=== PATIENT | female | born 1970 | race African-American/Black ===

== ENCOUNTER 2023-07-06 13:50 | Emergency (ER) | payer MEDICARE, MEDICAID ==
[~2023-07-06] VITALS: Ht 172.7 cm; Wt 86.5 kg
[2023-07-06 13:58] VITALS: BP 139/98; PULSE 96; RESP 16; TEMP 98.1; O2SAT 98
[2023-07-06] MEDS ORDERED: MECLIZINE 25MG TABLET PO ONE (14:00)
[2023-07-06 14:53] LABS: BASOPHILS % 1.1 % (0.0-2.0); EOSINOPHILS % 0.7 % (0.0-5.0); HEMATOCRIT. 46.8 % (36.0-48.0); HEMOGLOBIN. 15.6 g/dL (12.0-16.0); MEAN CORPUSCULAR HEMOGLOBIN 28.6 pg (28.0-32.0); MEAN CORPUSCULAR HGB CONC 33.2 g/dL (31.0-37.0); MEAN CORPUSCULAR VOLUME 86.1 fL (81.0-99.0); MONOCYTES % 7.1 % (2.0-8.0); NEUTROPHILS % 76.1 % (40.0-76.0); PLATELET 220 x1000/uL (130-400); RED BLOOD CELL COUNT 5.44 mill/uL (4.2-5.4); RED CELL DISTRIBUTION WIDTH 18.2 % (11.6-14.6)
[2023-07-06 14:58] LABS: HCG SCREEN NEGATIVE
[2023-07-06 15:10] LABS: ALANINE AMINOTRANSFERASE 56 IU/L (10-49); ALBUMIN 3.9 g/dL (3.2-4.8); ASPARTATE AMINOTRANSFERASE 77 IU/L (<34); BILIRUBIN TOTAL 1.8 mg/dL (0.1-1.0); CALCIUM 9.4 mg/dL (8.7-10.4); CARBON DIOXIDE 29 mEq/L (21-32); CHLORIDE 105 mEq/L (98-107); CREATININE 0.7 mg/dL (0.6-1.0); GLUCOSE 98 mg/dL (70-105); POTASSIUM 4.3 mEq/L (3.5-5.1); PROTEIN TOTAL 7.2 g/dL (6.0-8.3); SODIUM 139 mEq/L (136-145)
[2023-07-06 15:12] LABS: TROPONIN I HIGH SENSITIVITY < 4 ng/L (3.0-34); UREA NITROGEN BLOOD < 5 mg/dL (9-23)
[2023-07-06] MEDS ORDERED: METR-167 MT (18:08)
[2023-07-06] MEDS: MECLIZINE 12.5MG TABLET PO NR (18:24)
[2023-07-06] MEDS: SODIUM CHLORIDE 0.9% 1,000 ML IV ONE (18:24)
== END 2023-07-06 19:04 | disposition home or self-care (01) ==
LOC: ER 14:20
DX: R42 Dizziness and giddiness (principal); R53.1 Weakness; R11.2 Nausea with vomiting, unspecified; R19.7 Diarrhea, unspecified; J44.9 Chronic obstructive pulmonary disease, unspecified; Z90.49 Acquired absence of other specified parts of digestive tract
CPT/HCPCS: 99285; 96360; 70450; 71045; 80053; 84703; 83880; 83735; 85025; 84484; 36415; 93005; J8597; J7030